=== PATIENT | male | born 1970 | race Caucasian/White ===

== ENCOUNTER 2018-05-03 07:35 | Day surgery (SDC) | payer OTHER ==
[~2018-05-03] VITALS: Ht 172.7 cm; Wt 86.2 kg
[~2018-05-03 07:35] MED LIST: CEFAZOLIN SOD 1 GM/ ISO 50 ML PREMIX IV ONE
[2018-05-03] MEDS ORDERED: fentaNYL CITRATE 250 MCG/5 ML AMP IV ONE (11:05)
[2018-05-03] MEDS ORDERED: ONDANSETRON HCL 4 MG/2 ML VIAL IVP ONE (11:05)
[2018-05-03] MEDS ORDERED: KETOROLAC TROMETHAMINE 30 MG VIAL IVP ONE (11:05)
[2018-05-03] MEDS ORDERED: LR 1,000 ML IV.SOLN IV ONE (11:05)
[2018-05-03] MEDS ORDERED: BUPIVACAINE /PF 0.25% 30 ML VIAL INJ ONE (11:05)
[2018-05-03] MEDS ORDERED: MIDAZOLAM HCL 5 MG/5 ML VIAL IVP ONE (11:05)
[2018-05-03] MEDS ORDERED: PROPOFOL 200MG/ 20ML VIAL (DIPRIVAN) IV ONE (11:05)
[2018-05-03] MEDS ORDERED: DEXAMETHASONE SOD PHOSPHATE 4 MG/ML VIAL IVP ONE (11:05)
[2018-05-03] MEDS ORDERED: SEVOFLURANE 15 MIN GAS INH ONE (11:05)
[2018-05-03] MEDS ORDERED: ROCURONIUM BROMIDE 10 MG/ML (ZEMURON) IV ONE (11:05)
[2018-05-03] MEDS ORDERED: POLYMYXIN 500,000/BACIT.10,000 UNITS in NS IRR 1 L IR ONE (11:17)
[2018-05-03] MEDS ORDERED: D5/0.45 NS 1,000 ML IV SCH (12:34)
[2018-05-03] MEDS ORDERED: HYDROmorphone 1 MG INJ. 1 MG/ML AMPUL IVP PRN ×2 (12:45→13:30)
[2018-05-03] MEDS ORDERED: HYDROcodone/ACETAMIN 5-325 MG TAB (NORCO/ VICODIN) PO PRN ×2 (12:45)
[2018-05-03] MEDS ORDERED: LR 1,000 ML IV SCH (13:27)
[2018-05-03] MEDS ORDERED: HYDROmorphone 1 MG INJ. 1 MG/ML AMPUL ONE (13:27)
[2018-05-03] MEDS ORDERED: HYDROmorphone 2 MG/ML VIAL IVP PRN ×2 (13:30)
[2018-05-03] MEDS ORDERED: MEPERIDINE HCL/PF 25 MG/ML DISP.SYRIN IVP PRN (13:30)
[2018-05-03 13:49] VITALS: BP_SYST 134
== END 2018-05-03 15:00 | disposition home or self-care (01) ==
LOC: SDS 07:35 → SMU 07:35 → EDSTATUS 09:30 → SDS 15:00
PROVIDERS: ATTEND Colon & Rectal Surgery
DX: K40.90 Unilateral inguinal hernia, without obstruction or gangrene, not specified as recurrent (principal); L91.8 Other hypertrophic disorders of the skin; M54.5 Low back pain; M54.9 Dorsalgia, unspecified; R53.83 Other fatigue; E78.5 Hyperlipidemia, unspecified; Z98.890 Other specified postprocedural states; G44.209 Tension-type headache, unspecified, not intractable; Z80.0 Family history of malignant neoplasm of digestive organs; Z80.3 Family history of malignant neoplasm of breast; Z87.891 Personal history of nicotine dependence; Z68.30 Body mass index [BMI] 30.0-30.9, adult
CPT/HCPCS: 11200; 49505; 88304; C1781 ×2; J0690; J1100; J1170; J1885; J2250; J2405; J2704; J3010; J3490; J7120